=== PATIENT | male | born 2000 | race Two or more races ===

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

== ENCOUNTER → 2021-07-31 | Outpatient (CLI) | payer OTHER | END | disposition home or self-care (01) | LOC: LAB 10:03 → LAB SHORT 10:03 | DX: R05.9 Cough, unspecified (principal) | CPT/HCPCS: 87081 ==

== ENCOUNTER 2021-11-05 03:00 | Emergency (ER) | payer OTHER ==
[~2021-11-05] VITALS: Ht 177.8 cm; Wt 104.3 kg
[2021-11-05] MEDS ORDERED: ALBU90OI INH (05:38)
[2021-11-05] MEDS ORDERED: PRED20 PO (05:38)
[2021-11-05] MEDS ORDERED: EPIPEN0.3 MG/0.1 IM (05:38)
== END 2021-11-05 05:47 | disposition home or self-care (01) ==
LOC: ER 03:00
DX: T78.40XA Allergy, unspecified, initial encounter (principal); R06.2 Wheezing; Z88.0 Allergy status to penicillin; Z79.899 Other long term (current) drug therapy
CPT/HCPCS: A9270; J7512

== ENCOUNTER 2024-10-07 08:56 | Day surgery (SDC) | payer OTHER ==
[~2024-10-07] VITALS: Ht 175.3 cm; Wt 104.7 kg
--- NOTE | 2024-10-07 08:26 | NUR ---
10/07/24 0826 DESTINY CHANDRA 0820 PT CALLED TO DETERMINE ARRIVAL TIME BY THIS RN. PT STATES "I'M IN THE SHOWER". THIS RN NOTIFIED PT OF 0815 CHECK IN TIME, PT STATES "MY PAPERWORK SAYS 0915". THIS RN ASKED PT TO COME SOON POSSIBLE, PT AGREEABLE.
[~2024-10-07 08:56] MED LIST changes: +ALBU90OI INH; +EPIPEN0.3 MG/0.1 IM; +Lactated Ringer's 1,000 ML IV ONE; +PRED20 PO
[2024-10-07] MEDS ORDERED: Midazolam HCl 1MG / ML 2ML Vial ONE ×2 (08:59→16:27)
[2024-10-07] MEDS ORDERED: FentaNYL Citrate 50 MCG/ML 2 ML Injection ONE ×2 (08:59→12:18)
[2024-10-07] MEDS ORDERED: propofoL 40 ML IV ONE (08:59)
[2024-10-07] MEDS ORDERED: Tranexamic Acid 100 ML IV ONE (09:00)
[2024-10-07] MEDS ORDERED: CeFAZolin Sodium 2,000 MG VIAL ONE (09:05)
[2024-10-07] MEDS ORDERED: ALLEGRA ALLERG180 MG PO (09:11)
[2024-10-07] MEDS ORDERED: Lactated Ringer's 1,000 ML IV ONE ×2 (09:38→12:14)
[2024-10-07] MEDS ORDERED: Dexamethasone Sod Phos 10 MG/ML 1ML VIAL ONE (10:02)
[2024-10-07] MEDS ORDERED: Bupivacaine HCl 0.25% 30 ML Injection ONE (10:02)
[2024-10-07] MEDS ORDERED: Ondansetron HCl 2 MG / ML 2ML Vial ONE ×2 (10:02→15:24)
[2024-10-07] MEDS ORDERED: Phenylephrine HCl 100 MCG/ML-NS 10MLSYR (1MG/10ML) ONE (10:02)
[2024-10-07] MEDS ORDERED: Rocuronium Bromide 10 MG/ML 5ML Injection IV ONE (10:02)
[2024-10-07] MEDS ORDERED: EPINEPhrine HCl 1 MG/ML 1ML Amp ONE (10:29)
[2024-10-07] MEDS ORDERED: ePHEDrine Sulfate 50 MG/ML 1ML Injection ONE (11:17)
[2024-10-07] MEDS ORDERED: HYDROmorphone HCl/Pf 1MG SYR ONE ×5 (11:19→16:27)
--- NOTE | 2024-10-07 11:38 | NUR ---
10/07/24 1138 Yumi Villalobos 1MG/ML EPINEPHRINE PER 3,000 LITERS OF LACTACTED RINGERS IN THREE BAGS (3MLS TOTAL). USED FOR SCOPE.
[2024-10-07] MEDS ORDERED: propofoL 20 ML IV ONE (12:09)
[2024-10-07] MEDS ORDERED: Ketorolac Tromethamine 30mg Vial ONE (15:30)
--- NOTE | 2024-10-07 15:37 | NUR ---
10/07/24 1537 SITA SOUZA PT HAD EMESIS. ZOFRAN WAS GIVEN AT 1525 LEFT KNEE PAIN. PT MOANING. STATES 11/11. GAVE TORADOL 30MG IV
[2024-10-07] MEDS ORDERED: OxyCODONE HCL 5 MG TAB ONE (15:58)
[2024-10-07 16:13] VITALS: BP 135/83
[2024-10-07] MEDS ORDERED: Ketamine HCl 100 MG / ML 5ML Vial ONE (16:26)
--- NOTE | 2024-10-07 16:31 | NUR ---
10/07/[address] IN AT BEDSIDE. PT PLACED BACK ON O2 VIA N/C AT 2L. VERSED 1MG GIVEN IV PUSH BY DR GRIMALDO. MOM AND GRANDMA AT BEDSIDE. REPORT GIVEN TO NARMATA JOLLEY
[2024-10-07] MEDS ORDERED: Metoclopramide HCl 5MG / ML 2ML Vial ONE (17:16)
== END 2024-10-07 18:15 | disposition home or self-care (01) ==
LOC: ORSCSDS 08:56
PROVIDERS: Orthopaedic Surgery Sports Medicine
PROC: 0MRP47Z Replacement of Left Knee Bursa and Ligament with Autologous Tissue Substitute, Percutaneous Endoscopic Approach (ICD-10-PCS; principal; 2024-10-07 09:45)
DX: S83.512A Sprain of anterior cruciate ligament of left knee, initial encounter (principal); M23.204 Derangement of unspecified medial meniscus due to old tear or injury, left knee; M23.262 Derangement of other lateral meniscus due to old tear or injury, left knee; E66.9 Obesity, unspecified; Z68.34 Body mass index [BMI] 34.0-34.9, adult
CPT/HCPCS: A9270; C1713; C1776; C1889; J0171; J0690; J1100; J1171; J1885; J2250; J2371; J2405; J2704; J2765; J3010; J7120